=== PATIENT | male | born 1980 | race Caucasian/White ===

== ENCOUNTER 2017-02-09 09:10 | Emergency (ER) | payer OTHER ==
--- NOTE | 2017-02-09 10:21 | DIAGNOSTIC IMAGING REPORT ---
PROCEDURE: XR CHEST 2 VIEW INDICATION: COUGH X 2 MONTHS TECHNIQUE: Two views. COMPARISON: 01/14/2016 FINDINGS: The cardiomediastinal contour is stable, within normal limits. The central vasculature is not congested. The lungs are clear without focal consolidation, pleural effusion or pneumothorax. The visualized osseous structures are intact. IMPRESSION: 1. No evidence of acute cardiopulmonary disease. 2. Stable exam compared to prior study.
--- NOTE | 2017-02-09 10:41 | ED ORDER SUMMARY ---
..... Patient: VENTURA SINGH OrderSheet [facility] VisitID: [id number] [place] [address] 36y, M Registration Date/Time: 02/09/2017 ORDER SHEET Weight: 122.4 kg (stated) Allergies: No Known Drug Allergy GENERAL ORDERS: Chest 2V Urgent (09:30 02/09/2017 Sandoval Kaminski) (Ack 9:35 TBergley) (9:52 MWinterer R.N.) Culture, Strep Screen Urgent (:02/09/2017 Sandoval Kaminski) (Ack 9:35 TBergley) (9:52 MWinterer R.N.) MEDICATION ORDERS: Prednisone PO 60 mg (NOW) (09:02/09/2017 Sandoval Kaminski) (Ack 9:40 MWinterer R.N.) (9:52 MWinterer R.N.) Toradol IM 60 mg (NOW) (09:02/09/2017 Sandoval Kaminski) (Ack 9:40 MWinterer R.N.) (9:52 MWinterer R.N.) Azithromycin PO 500 mg (NOW) (10:39 02/09/2017 Sandoval Kaminski) (Ack 10:43 SReodessa R.N.) (10:45 Janiya R.N.) IV FLUIDS: ORDER SHEET NOTES: [Electronically signed by Mikayla Stinson R.N. (10:50 02/09/2017)] [Electronically signed by Giuseppe Beard Dr. (11:42 02/11/2017)] [Electronically locked/signed by Mikayla Stinson R.N. (10:50 02/09/2017)]
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
--- NOTE | 2017-02-09 10:41 | ED ORDER SUMMARY ---
..... Patient: VENTURA SINGH OrderSheet [facility] VisitID: [id number] [place] [address] 36y, M Registration Date/Time: 02/09/2017 ORDER SHEET Weight: 122.4 kg (stated) Allergies: No Known Drug Allergy GENERAL ORDERS: Chest 2V Urgent (09:30 02/09/2017 Sandoval Kaminski) (Ack 9:35 TBergley) (9:52 MWinterer R.N.) Culture, Strep Screen Urgent (:02/09/2017 Sandoval Kaminski) (Ack 9:35 TBergley) (9:52 MWinterer R.N.) MEDICATION ORDERS: Prednisone PO 60 mg (NOW) (09:02/09/2017 Sandoval Kaminski) (Ack 9:40 MWinterer R.N.) (9:52 MWinterer R.N.) Toradol IM 60 mg (NOW) (09:02/09/2017 Sandoval Kmainski) (Ack 9:40 MWinterer R.N.) (9:52 MWinterer R.N.) Azithromycin PO 500 mg (NOW) (10:39 02/09/2017 Sandoval Kaminski) (Ack 10:43 SReodessa R.N.) (10:45 Janiya R.N.) IV FLUIDS: ORDER SHEET NOTES: [Electronically signed by Mikayla Stinson R.N. (10:50 02/09/2017)] [Electronically signed by Giuseppe Beard Dr. (11:42 02/11/2017)] [Electronically locked/signed by Mikayla Stinson R.N. (10:50 02/09/2017)]
--- NOTE | 2017-02-11 11:42 | ED MAR SUMMARY ---
..... Medication Administration Record [facility] [address] [place] [address] Patient: VENTURA SINGH Visit ID: [id number] 36y, M Weight: 122.4 kg Height/Length: 74 in BMI: 34.7 ALLERGIES: No Known Drug Allergy Given 09:52 02/09/2017 Huma Tamayo R.N. Medication Administered: PREDNISONE [PO], Dose: 60 mg PO. Medication Ordered: Prednisone PO 60 mg (NOW). Given 09:52 02/09/2017 Huma Tamayo R.N. Medication Administered: TORADOL [IM] (KETOROLAC TROMETHAMINE), Dose: 60 mg IM. Medication Ordered: Toradol IM 60 mg (NOW). Given 10:45 02/09/2017 Mikayla Stinson R.N. Medication Administered: AZITHROMYCIN [PO], Dose: 500 mg PO. Medication Ordered: Azithromycin PO 500 mg (NOW).
--- NOTE | 2017-02-11 11:42 | ED DISCHARGE INSTRUCTIONS ---
Patient: VENTURA SINGH General Instructions [facility] VisitID: [id number] [place] [address] 36y, M Registration Date/Time: 02/09/2017 02/09/2017 09:13 BP: 128/77. HR: 93. RR: 20. O2 saturation: 97%. Temp: 98.5 F. Pain level now: 9/10. Blood pressure normal. Oxygen saturation normal. Acute streptococcal pharyngitis INSTRUCTIONS Warnings: GENERAL WARNINGS: Return or contact your physician immediately if your condition worsens or changes unexpectedly, if not improving as expected, or if other problems arise. Specifically return if pain, vomiting, bleeding, breathing difficulty or fever. Your Current Medications: CONTINUE TAKING THE FOLLOWING MEDICATIONS: Simvastatin Oral. Prescription Medications: Prednisone 50 mg: take 1 orally every day for 5 days. Dispense five (5). No refills. Zithromax Z-Kenneth: Take according to package instructions. No refills. Substitution is permissible. Motrin 600 mg tablets: take 1 tablet orally every 6 hours for 5 days. Dispense twenty (20). No refill. Substitution is permissible. Follow-up: Return to the emergency department as needed. Follow up with your doctor in three days. Reason for referral: recheck today's concern. Summary of care provided to patient via paper. Screening today revealed the patient's blood pressure to be in the normal range. The patient should follow up with a primary care provider for blood pressure management. Understanding of the discharge instructions verbalized by patient. ADDITIONAL INFORMATION Pharyngitis: Strep [Confirmed] Your test for strep throat was positive. Strep throat is a contagious illness. It is spread by coughing, kissing or by touching others after touching your mouth or nose. Symptoms include throat pain which is worse with swallowing, aching all over, headache and fever. You will be treated with an antibiotic which should make you start to feel better within 1-2 days. Home Care: Rest at home and drink plenty of fluids to avoid dehydration. No school or work for the first two days on antibiotics. You will not be contagious after this time and if you are feeling better, you can return to school or work. Take your antibiotics for a full 10 days, even if you feel better after the first few days of treatment. This is very important to prevent heart or kidney disease that can result as a complication of untreated strep throat infection. Children: Use acetaminophen (Tylenol) for fever, fussiness or discomfort. In infants over six months of age, you may use ibuprofen (Children's Motrin) instead of Tylenol. [NOTE: If your child has chronic liver or kidney disease or ever had a stomach ulcer or GI bleeding, talk with your doctor before using these medicines.] (Aspirin should never be used in anyone under 18 years of age who is ill with a fever. It may cause severe liver damage.)Adults: You may use acetaminophen (Tylenol) or ibuprofen (Motrin, Advil) to control pain or fever, unless another medicine was prescribed for this. [NOTE: If you have chronic liver or kidney disease or ever had a stomach ulcer or GI bleeding, talk with your doctor before using these medicines.] Throat lozenges or sprays (Chloraseptic and others) will reduce pain. Gargling with warm salt water will also reduce throat pain. Dissolve 1/2 teaspoon of salt in 1 glass of warm water. This is especially useful just before meals. Follow Up with your doctor or as directed by our staff if you are not improving over the next week. Get Prompt Medical Attention if any of the following occur: Fever of 100.4F (38C) oral or higher, not better with fever medication New or worsening ear pain, sinus pain or headache Painful lumps in the back of your neck Unable to swallow liquids or open your mouth wide due to throat pain Trouble breathing or noisy breathing Muffled voice New rash Prednisone Oral tablet What is this medicine? PREDNISONE (PRED ni sone) is a corticosteroid. It is commonly used to treat inflammation of the skin, joints, lungs, and other organs. Common conditions treated include asthma, allergies, and arthritis. It is also used for other conditions, such as blood disorders and diseases of the adrenal glands. How should I use this medicine? Take this medicine by mouth with a glass of water. Follow the directions on the prescription label. Take this medicine with food. If you are taking this medicine once a day, take it in the morning. Do not take more medicine than you are told to take. Do not suddenly stop taking your medicine because you may develop a severe reaction. Your doctor will tell you how much medicine to take. If your doctor wants you to stop the medicine, the dose may be slowly lowered over time to avoid any side effects. Talk to your dependency director regarding the use of this medicine in children. Special care may be needed. What side effects may I notice from receiving this medicine? Side effects that you should report to your doctor or health direct care counselor as soon as possible: allergic reactions like skin rash, itching or hives, swelling of the face, lips, or tongue changes in emotions or moods changes in vision depressed mood eye pain fever or chills, cough, sore throat, pain or difficulty passing urine increased thirst swelling of ankles, feet Side effects that usually do not require medical attention (report to your doctor or health direct care counselor if they continue or are bothersome): confusion, excitement, restlessness headache nausea, vomiting skin problems, acne, thin and shiny skin trouble sleeping weight gain What may interact with this medicine? Do not take this medicine with any of the following medications: metyrapone mifepristone This medicine may also interact with the following medications: aminoglutethimide amphotericin B aspirin and aspirin-like medicines barbiturates certain medicines for diabetes, like glipizide or glyburide cholestyramine cholinesterase inhibitors cyclosporine digoxin diuretics ephedrine female hormones, like estrogens and control pills isoniazid ketoconazole NSAIDS, medicines for pain and inflammation, like ibuprofen or naproxen phenytoin rifampin toxoids vaccines warfarin What if I miss a dose? If you miss a dose, take it as soon as you can. If it is almost time for your next dose, talk to your doctor or health direct care counselor. You may need to miss a dose or take an extra dose. Do not take double or extra doses without advice. Where should I keep my medicine? Keep out of the reach of children. Store at room temperature between 15 and 30 degrees C (59 and 86 degrees F). Protect from light. Keep container tightly closed. Throw away any unused medicine after the expiration date. What should I tell my health care provider before I take this medicine? They need to know if you have any of these conditions: Funmilayo's syndrome diabetes glaucoma heart disease high blood pressure infection (especially a virus infection such as chickenpox, cold sores, or herpes) kidney disease liver disease mental illness myasthenia gravis osteoporosis seizures stomach or intestine problems thyroid disease an unusual or allergic reaction to lactose, prednisone, other medicines, foods, dyes, or preservatives or trying to get breast-feeding What should I watch for while using this medicine? Visit your doctor or health direct care counselor for regular checks on your progress. If you are taking this medicine over a prolonged period, carry an identification card with your name and address, the type and dose of your medicine, and your doctor's name and address. This medicine may increase your risk of getting an infection. Tell your doctor or health direct care counselor if you are around anyone with measles or chickenpox, or if you develop sores or blisters that do not heal properly. If you are going to have surgery, tell your doctor or health direct care counselor that you have taken this medicine within the last twelve months. Ask your doctor or health direct care counselor about your diet. You may need to lower the amount of salt you eat. This medicine may affect blood sugar levels. If you have diabetes, check with your doctor or health direct care counselor before you change your diet or the dose of your diabetic medicine. Azithromycin Oral tablet What is this medicine? AZITHROMYCIN (az ith tatiana MYE sin) is a macrolide antibiotic. It is used to treat or prevent certain kinds of bacterial infections. It will not work for colds, flu, or other viral infections. How should I use this medicine? Take this medicine by mouth with a full glass of water. Follow the directions on the prescription label. The tablets can be taken with food or on an empty stomach. If the medicine upsets your stomach, take it with food. Take your medicine at regular intervals. Do not take your medicine more often than directed. Take all of your medicine as directed even if you think your are better. Do not skip doses or stop your medicine early. Talk to your dependency director regarding the use of this medicine in children. Special care may be needed. What side effects may I notice from receiving this medicine? Side effects that you should report to your doctor or health direct care counselor as soon as possible: allergic reactions like skin rash, itching or hives, swelling of the face, lips, or tongue confusion, nightmares or hallucinations dark urine difficulty breathing hearing loss irregular heartbeat or chest pain pain or difficulty passing urine redness, blistering, peeling or loosening of the skin, including inside the mouth white patches or sores in the mouth yellowing of the eyes or skin Side effects that usually do not require medical attention (report to your doctor or health direct care counselor if they continue or are bothersome): diarrhea dizziness, drowsiness headache stomach upset or vomiting tooth discoloration vaginal irritation What may interact with this medicine? Do not take this medicine with any of the following medications: lincomycin This medicine may also interact with the following medications: amiodarone antacids cyclosporine digoxin magnesium nelfinavir phenytoin warfarin What if I miss a dose? If you miss a dose, take it as soon as you can. If it is almost time for your next dose, take only that dose. Do not take double or extra doses. Where should I keep my medicine? Keep out of the reach of children. Store at room temperature between 15 and 30 degrees C (59 and 86 degrees F). Throw away any unused medicine after the expiration date. What should I tell my health care provider before I take this medicine? They need to know if you have any of these conditions: kidney disease liver disease irregular heartbeat or heart disease an unusual or allergic reaction to azithromycin, erythromycin, other macrolide antibiotics, foods, dyes, or preservatives or trying to get breast-feeding What should I watch for while using this medicine? Tell your doctor or health direct care counselor if your symptoms do not improve. Do not treat diarrhea with over the counter products. Contact your doctor if you have diarrhea that lasts more than 2 days or if it is severe and watery. This medicine can make you more sensitive to the sun. Keep out of the sun. If you cannot avoid being in the sun, wear protective clothing and use sunscreen. Do not use sun lamps or tanning beds/booths. Ibuprofen Oral tablet What is this medicine? IBUPROFEN (eye BYOO proe fen) is a non-steroidal anti-inflammatory drug (NSAID). It is used for dental pain, fever, headaches or migraines, osteoarthritis, rheumatoid arthritis, or painful monthly periods. It can also relieve minor aches and pains caused by a cold, flu, or sore throat. How should I use this medicine? Take this medicine by mouth with a glass of water. Follow the directions on the prescription label. Take this medicine with food if your stomach gets upset. Try to not lie down for at least 10 minutes after you take the medicine. Take your medicine at regular intervals. Do not take your medicine more often than directed. A special MedGuide will be given to you by the pharmacist with each prescription and refill. Be sure to read this information carefully each time. Talk to your dependency director regarding the use of this medicine in children. Special care may be needed. What side effects may I notice from receiving this medicine? Side effects that you should report to your doctor or health direct care counselor as soon as possible: allergic reactions like skin rash, itching or hives, swelling of the face, lips, or tongue black or bloody stools, blood in the urine or in vomit breathing problems changes in vision chest pain general ill feeling or flu-like symptoms nausea or vomiting redness, blistering, peeling or loosening of the skin, including inside the mouth slurred speech or weakness on one side of the body stomach pain unexplained weight gain or swelling unusually weak or tired yellowing of eyes or skin Side effects that usually do not require medical attention (report to your doctor or health direct care counselor if they continue or are bothersome): constipation or diarrhea dizziness gas or heartburn stomach upset What may interact with this medicine? Do not take this medicine with any of the following medications: cidofovir ketorolac methotrexate pemetrexed This medicine may also interact with the following medications: alcohol aspirin diuretics lithium other drugs for inflammation like prednisone warfarin What if I miss a dose? If you miss a dose, take it as soon as you can. If it is almost time for your next dose, take only that dose. Do not take double or extra doses. Where should I keep my medicine? Keep out of the reach of children. Store at room temperature between 15 and 30 degrees C (59 and 86 degrees F). Keep container tightly closed. Throw away any unused medicine after the expiration date. What should I tell my health care provider before I take this medicine? They need to know if you have any of these conditions: asthma cigarette smoker drink more than 3 alcohol containing drinks a day heart disease or circulation problems such as heart failure or leg edema (fluid retention) high blood pressure kidney disease liver disease stomach bleeding or ulcers an unusual or allergic reaction to ibuprofen, aspirin, other NSAIDS, other medicines, foods, dyes, or preservatives or trying to get breast-feeding What should I watch for while using this medicine? Tell your doctor or healthcare professional if your symptoms do not start to get better or if they get worse. This medicine does not prevent heart attack or stroke. In fact, this medicine may increase the chance of a heart attack or stroke. The chance may increase with longer use of this medicine and in people who have heart disease. If you take aspirin to prevent heart attack or stroke, talk with your doctor or health direct care counselor. Do not take other medicines that contain aspirin, ibuprofen, or naproxen with this medicine. Side effects such as stomach upset, nausea, or ulcers may be more likely to occur. Many medicines available without a prescription should not be taken with this medicine. This medicine can cause ulcers and bleeding in the stomach and intestines at any time during treatment. Ulcers and bleeding can happen without warning symptoms and can cause . To reduce your risk, do not smoke cigarettes or drink alcohol while you are taking this medicine. You may get drowsy or dizzy. Do not drive, use machinery, or do anything that needs mental alertness until you know how this medicine affects you. Do not stand or sit up quickly, especially if you are an older patient. This reduces the risk of dizzy or fainting spells. This medicine can cause you to bleed more easily. Try to avoid damage to your teeth and gums when you brush or floss your teeth. You have been given the following additional information: Pharyngitis, Strep (Confirmed) Prednisone Oral tablet Azithromycin Oral tablet Ibuprofen Oral tablet (Electronically signed by Giuseppe Beard Dr. 02/11/2017 11:42)
--- NOTE | 2017-02-11 11:42 | ED DISCHARGE INSTRUCTIONS ---
Patient: VENTURA SINGH General Instructions [facility] VisitID: [id number] [place] [address] 36y, M Registration Date/Time: 02/09/2017 02/09/2017 09:13 BP: 128/77. HR: 93. RR: 20. O2 saturation: 97%. Temp: 98.5 F. Pain level now: 9/10. Blood pressure normal. Oxygen saturation normal. Acute streptococcal pharyngitis INSTRUCTIONS Warnings: GENERAL WARNINGS: Return or contact your physician immediately if your condition worsens or changes unexpectedly, if not improving as expected, or if other problems arise. Specifically return if pain, vomiting, bleeding, breathing difficulty or fever. Your Current Medications: CONTINUE TAKING THE FOLLOWING MEDICATIONS: Simvastatin Oral. Prescription Medications: Prednisone 50 mg: take 1 orally every day for 5 days. Dispense five (5). No refills. Zithromax Z-Kenneth: Take according to package instructions. No refills. Substitution is permissible. Motrin 600 mg tablets: take 1 tablet orally every 6 hours for 5 days. Dispense twenty (20). No refill. Substitution is permissible. Follow-up: Return to the emergency department as needed. Follow up with your doctor in three days. Reason for referral: recheck today's concern. Summary of care provided to patient via paper. Screening today revealed the patient's blood pressure to be in the normal range. The patient should follow up with a primary care provider for blood pressure management. Understanding of the discharge instructions verbalized by patient. ADDITIONAL INFORMATION Pharyngitis: Strep [Confirmed] Your test for strep throat was positive. Strep throat is a contagious illness. It is spread by coughing, kissing or by touching others after touching your mouth or nose. Symptoms include throat pain which is worse with swallowing, aching all over, headache and fever. You will be treated with an antibiotic which should make you start to feel better within 1-2 days. Home Care: Rest at home and drink plenty of fluids to avoid dehydration. No school or work for the first two days on antibiotics. You will not be contagious after this time and if you are feeling better, you can return to school or work. Take your antibiotics for a full 10 days, even if you feel better after the first few days of treatment. This is very important to prevent heart or kidney disease that can result as a complication of untreated strep throat infection. Children: Use acetaminophen (Tylenol) for fever, fussiness or discomfort. In infants over six months of age, you may use ibuprofen (Children's Motrin) instead of Tylenol. [NOTE: If your child has chronic liver or kidney disease or ever had a stomach ulcer or GI bleeding, talk with your doctor before using these medicines.] (Aspirin should never be used in anyone under 18 years of age who is ill with a fever. It may cause severe liver damage.)Adults: You may use acetaminophen (Tylenol) or ibuprofen (Motrin, Advil) to control pain or fever, unless another medicine was prescribed for this. [NOTE: If you have chronic liver or kidney disease or ever had a stomach ulcer or GI bleeding, talk with your doctor before using these medicines.] Throat lozenges or sprays (Chloraseptic and others) will reduce pain. Gargling with warm salt water will also reduce throat pain. Dissolve 1/2 teaspoon of salt in 1 glass of warm water. This is especially useful just before meals. Follow Up with your doctor or as directed by our staff if you are not improving over the next week. Get Prompt Medical Attention if any of the following occur: Fever of 100.4F (38C) oral or higher, not better with fever medication New or worsening ear pain, sinus pain or headache Painful lumps in the back of your neck Unable to swallow liquids or open your mouth wide due to throat pain Trouble breathing or noisy breathing Muffled voice New rash Prednisone Oral tablet What is this medicine? PREDNISONE (PRED ni sone) is a corticosteroid. It is commonly used to treat inflammation of the skin, joints, lungs, and other organs. Common conditions treated include asthma, allergies, and arthritis. It is also used for other conditions, such as blood disorders and diseases of the adrenal glands. How should I use this medicine? Take this medicine by mouth with a glass of water. Follow the directions on the prescription label. Take this medicine with food. If you are taking this medicine once a day, take it in the morning. Do not take more medicine than you are told to take. Do not suddenly stop taking your medicine because you may develop a severe reaction. Your doctor will tell you how much medicine to take. If your doctor wants you to stop the medicine, the dose may be slowly lowered over time to avoid any side effects. Talk to your water well driller regarding the use of this medicine in children. Special care may be needed. What side effects may I notice from receiving this medicine? Side effects that you should report to your doctor or health critical care nurse specialist as soon as possible: allergic reactions like skin rash, itching or hives, swelling of the face, lips, or tongue changes in emotions or moods changes in vision depressed mood eye pain fever or chills, cough, sore throat, pain or difficulty passing urine increased thirst swelling of ankles, feet Side effects that usually do not require medical attention (report to your doctor or health critical care nurse specialist if they continue or are bothersome): confusion, excitement, restlessness headache nausea, vomiting skin problems, acne, thin and shiny skin trouble sleeping weight gain What may interact with this medicine? Do not take this medicine with any of the following medications: metyrapone mifepristone This medicine may also interact with the following medications: aminoglutethimide amphotericin B aspirin and aspirin-like medicines barbiturates certain medicines for diabetes, like glipizide or glyburide cholestyramine cholinesterase inhibitors cyclosporine digoxin diuretics ephedrine female hormones, like estrogens and control pills isoniazid ketoconazole NSAIDS, medicines for pain and inflammation, like ibuprofen or naproxen phenytoin rifampin toxoids vaccines warfarin What if I miss a dose? If you miss a dose, take it as soon as you can. If it is almost time for your next dose, talk to your doctor or health critical care nurse specialist. You may need to miss a dose or take an extra dose. Do not take double or extra doses without advice. Where should I keep my medicine? Keep out of the reach of children. Store at room temperature between 15 and 30 degrees C (59 and 86 degrees F). Protect from light. Keep container tightly closed. Throw away any unused medicine after the expiration date. What should I tell my health care provider before I take this medicine? They need to know if you have any of these conditions: Funmilayo's syndrome diabetes glaucoma heart disease high blood pressure infection (especially a virus infection such as chickenpox, cold sores, or herpes) kidney disease liver disease mental illness myasthenia gravis osteoporosis seizures stomach or intestine problems thyroid disease an unusual or allergic reaction to lactose, prednisone, other medicines, foods, dyes, or preservatives or trying to get breast-feeding What should I watch for while using this medicine? Visit your doctor or health critical care nurse specialist for regular checks on your progress. If you are taking this medicine over a prolonged period, carry an identification card with your name and address, the type and dose of your medicine, and your doctor's name and address. This medicine may increase your risk of getting an infection. Tell your doctor or health critical care nurse specialist if you are around anyone with measles or chickenpox, or if you develop sores or blisters that do not heal properly. If you are going to have surgery, tell your doctor or health critical care nurse specialist that you have taken this medicine within the last twelve months. Ask your doctor or health critical care nurse specialist about your diet. You may need to lower the amount of salt you eat. This medicine may affect blood sugar levels. If you have diabetes, check with your doctor or health critical care nurse specialist before you change your diet or the dose of your diabetic medicine. Azithromycin Oral tablet What is this medicine? AZITHROMYCIN (az ith tatiana MYE sin) is a macrolide antibiotic. It is used to treat or prevent certain kinds of bacterial infections. It will not work for colds, flu, or other viral infections. How should I use this medicine? Take this medicine by mouth with a full glass of water. Follow the directions on the prescription label. The tablets can be taken with food or on an empty stomach. If the medicine upsets your stomach, take it with food. Take your medicine at regular intervals. Do not take your medicine more often than directed. Take all of your medicine as directed even if you think your are better. Do not skip doses or stop your medicine early. Talk to your water well driller regarding the use of this medicine in children. Special care may be needed. What side effects may I notice from receiving this medicine? Side effects that you should report to your doctor or health critical care nurse specialist as soon as possible: allergic reactions like skin rash, itching or hives, swelling of the face, lips, or tongue confusion, nightmares or hallucinations dark urine difficulty breathing hearing loss irregular heartbeat or chest pain pain or difficulty passing urine redness, blistering, peeling or loosening of the skin, including inside the mouth white patches or sores in the mouth yellowing of the eyes or skin Side effects that usually do not require medical attention (report to your doctor or health critical care nurse specialist if they continue or are bothersome): diarrhea dizziness, drowsiness headache stomach upset or vomiting tooth discoloration vaginal irritation What may interact with this medicine? Do not take this medicine with any of the following medications: lincomycin This medicine may also interact with the following medications: amiodarone antacids cyclosporine digoxin magnesium nelfinavir phenytoin warfarin What if I miss a dose? If you miss a dose, take it as soon as you can. If it is almost time for your next dose, take only that dose. Do not take double or extra doses. Where should I keep my medicine? Keep out of the reach of children. Store at room temperature between 15 and 30 degrees C (59 and 86 degrees F). Throw away any unused medicine after the expiration date. What should I tell my health care provider before I take this medicine? They need to know if you have any of these conditions: kidney disease liver disease irregular heartbeat or heart disease an unusual or allergic reaction to azithromycin, erythromycin, other macrolide antibiotics, foods, dyes, or preservatives or trying to get breast-feeding What should I watch for while using this medicine? Tell your doctor or health critical care nurse specialist if your symptoms do not improve. Do not treat diarrhea with over the counter products. Contact your doctor if you have diarrhea that lasts more than 2 days or if it is severe and watery. This medicine can make you more sensitive to the sun. Keep out of the sun. If you cannot avoid being in the sun, wear protective clothing and use sunscreen. Do not use sun lamps or tanning beds/booths. Ibuprofen Oral tablet What is this medicine? IBUPROFEN (eye BYOO proe fen) is a non-steroidal anti-inflammatory drug (NSAID). It is used for dental pain, fever, headaches or migraines, osteoarthritis, rheumatoid arthritis, or painful monthly periods. It can also relieve minor aches and pains caused by a cold, flu, or sore throat. How should I use this medicine? Take this medicine by mouth with a glass of water. Follow the directions on the prescription label. Take this medicine with food if your stomach gets upset. Try to not lie down for at least 10 minutes after you take the medicine. Take your medicine at regular intervals. Do not take your medicine more often than directed. A special MedGuide will be given to you by the pharmacist with each prescription and refill. Be sure to read this information carefully each time. Talk to your water well driller regarding the use of this medicine in children. Special care may be needed. What side effects may I notice from receiving this medicine? Side effects that you should report to your doctor or health critical care nurse specialist as soon as possible: allergic reactions like skin rash, itching or hives, swelling of the face, lips, or tongue black or bloody stools, blood in the urine or in vomit breathing problems changes in vision chest pain general ill feeling or flu-like symptoms nausea or vomiting redness, blistering, peeling or loosening of the skin, including inside the mouth slurred speech or weakness on one side of the body stomach pain unexplained weight gain or swelling unusually weak or tired yellowing of eyes or skin Side effects that usually do not require medical attention (report to your doctor or health critical care nurse specialist if they continue or are bothersome): constipation or diarrhea dizziness gas or heartburn stomach upset What may interact with this medicine? Do not take this medicine with any of the following medications: cidofovir ketorolac methotrexate pemetrexed This medicine may also interact with the following medications: alcohol aspirin diuretics lithium other drugs for inflammation like prednisone warfarin What if I miss a dose? If you miss a dose, take it as soon as you can. If it is almost time for your next dose, take only that dose. Do not take double or extra doses. Where should I keep my medicine? Keep out of the reach of children. Store at room temperature between 15 and 30 degrees C (59 and 86 degrees F). Keep container tightly closed. Throw away any unused medicine after the expiration date. What should I tell my health care provider before I take this medicine? They need to know if you have any of these conditions: asthma cigarette smoker drink more than 3 alcohol containing drinks a day heart disease or circulation problems such as heart failure or leg edema (fluid retention) high blood pressure kidney disease liver disease stomach bleeding or ulcers an unusual or allergic reaction to ibuprofen, aspirin, other NSAIDS, other medicines, foods, dyes, or preservatives or trying to get breast-feeding What should I watch for while using this medicine? Tell your doctor or healthcare professional if your symptoms do not start to get better or if they get worse. This medicine does not prevent heart attack or stroke. In fact, this medicine may increase the chance of a heart attack or stroke. The chance may increase with longer use of this medicine and in people who have heart disease. If you take aspirin to prevent heart attack or stroke, talk with your doctor or health critical care nurse specialist. Do not take other medicines that contain aspirin, ibuprofen, or naproxen with this medicine. Side effects such as stomach upset, nausea, or ulcers may be more likely to occur. Many medicines available without a prescription should not be taken with this medicine. This medicine can cause ulcers and bleeding in the stomach and intestines at any time during treatment. Ulcers and bleeding can happen without warning symptoms and can cause . To reduce your risk, do not smoke cigarettes or drink alcohol while you are taking this medicine. You may get drowsy or dizzy. Do not drive, use machinery, or do anything that needs mental alertness until you know how this medicine affects you. Do not stand or sit up quickly, especially if you are an older patient. This reduces the risk of dizzy or fainting spells. This medicine can cause you to bleed more easily. Try to avoid damage to your teeth and gums when you brush or floss your teeth. You have been given the following additional information: Pharyngitis, Strep (Confirmed) Prednisone Oral tablet Azithromycin Oral tablet Ibuprofen Oral tablet (Electronically signed by Giuseppe Beard Dr. 02/11/2017 11:42)
--- NOTE | 2017-02-11 11:42 | ED MAR SUMMARY ---
..... Medication Administration Record [facility] [address] [place] [address] Patient: VENTURA SINGH Visit ID: [id number] 36y, M Weight: 122.4 kg Height/Length: 74 in BMI: 34.7 ALLERGIES: No Known Drug Allergy Given 09:52 02/09/2017 Huma Tamayo R.N. Medication Administered: PREDNISONE [PO], Dose: 60 mg PO. Medication Ordered: Prednisone PO 60 mg (NOW). Given 09:52 02/09/2017 Huma Tamayo R.N. Medication Administered: TORADOL [IM] (KETOROLAC TROMETHAMINE), Dose: 60 mg IM. Medication Ordered: Toradol IM 60 mg (NOW). Given 10:45 02/09/2017 Mikayla Stinson R.N. Medication Administered: AZITHROMYCIN [PO], Dose: 500 mg PO. Medication Ordered: Azithromycin PO 500 mg (NOW).
--- NOTE | 2017-02-11 11:42 | ED MED RECONCILIATION SUMMARY ---
Patient: VENTURA SINGH Medication Reconciliation Report [facility] VisitID: [id number] [address] [place] [address] 36y, M Registration Date/Time: 02/09/2017 Weight: 122.4 kg Height/Length: 74 in. BMI: 34.7 ALLERGIES: No Known Drug Allergy The patient's Home Medications are listed below: CONTINUE TAKING THE FOLLOWING MEDICATIONS: Simvastatin Oral The source(s) of the original Home Medication information: patient The following Medications were given to the patient in the Emergency Department: Prednisone [PO] PO 60 mg, administered: 02/09/2017 9:52:00 AM Toradol [IM] IM 60 mg, administered: 02/09/2017 9:52:00 AM Azithromycin [PO] PO 500 mg, administered: 02/09/2017 10:45:00 AM The following Medications were prescribed to the patient: Prednisone 50 mg: take 1 orally every day for 5 days. Dispense five (5). No refills. -- Giuseppe Beard Dr. Zithromax Z-Kenneth: Take according to package instructions. No refills. Substitution is permissible. -- Giuseppe Beard Dr. Motrin 600 mg tablets: take 1 tablet orally every 6 hours for 5 days. Dispense twenty (20). No refill. Substitution is permissible. -- Giuseppe Beard Dr.
--- NOTE | 2017-02-11 11:42 | ED MED RECONCILIATION SUMMARY ---
Patient: VENTURA SINGH Medication Reconciliation Report [facility] VisitID: [id number] [address] [place] [address] 36y, M Registration Date/Time: 02/09/2017 Weight: 122.4 kg Height/Length: 74 in. BMI: 34.7 ALLERGIES: No Known Drug Allergy The patient's Home Medications are listed below: CONTINUE TAKING THE FOLLOWING MEDICATIONS: Simvastatin Oral The source(s) of the original Home Medication information: patient The following Medications were given to the patient in the Emergency Department: Prednisone [PO] PO 60 mg, administered: 02/09/2017 9:52:00 AM Toradol [IM] IM 60 mg, administered: 02/09/2017 9:52:00 AM Azithromycin [PO] PO 500 mg, administered: 02/09/2017 10:45:00 AM The following Medications were prescribed to the patient: Prednisone 50 mg: take 1 orally every day for 5 days. Dispense five (5). No refills. -- Giuseppe Beard Dr. Zithromax Z-Kenneth: Take according to package instructions. No refills. Substitution is permissible. -- Giuseppe Beard Dr. Motrin 600 mg tablets: take 1 tablet orally every 6 hours for 5 days. Dispense twenty (20). No refill. Substitution is permissible. -- Giuseppe Beard Dr.
== END 2017-02-09 10:47 | disposition home or self-care (01) ==
LOC: ED SRH 09:10
DX: J02.0 Streptococcal pharyngitis (principal); M06.9 Rheumatoid arthritis, unspecified
CPT/HCPCS: 90154

== ENCOUNTER 2017-02-12 08:51 | Outpatient (CLI) | payer OTHER ==
--- NOTE | 2017-02-12 12:33 | DIAGNOSTIC IMAGING REPORT ---
PROCEDURE: US KIDNEY/RENAL COMPLETE INDICATION: Microscopic hematuria TECHNIQUE: Kothari scale and color Doppler sonographic imaging of the kidneys and urinary bladder was obtained. Intrarenal resistive indices were calculated when appropriate. COMPARISON: .06/21/[address] 06/23/2015 FINDINGS: The right kidney measures 12.2 x 5.2 x 4.9 cm. Normal cortical thickness and echogenicity. No hydronephrosis, cyst, solid mass, or shadowing calculus. Normal color Doppler blood flow throughout the kidney. Resistive indices in the intrarenal parenchymal arteries range from 0.53-0.60. The left kidney measures 13.0 x 5.5 x 5.8 cm. Normal cortical thickness and echogenicity. There is an exophytic hypoechoic, thin-walled cystic structure arising from the upper pole lateral left kidney measuring 1.5 cm. No suspicious solid mass. No hydronephrosis or shadowing calculus. Normal color Doppler blood flow throughout the kidney. Resistive indices in the intrarenal parenchymal arteries range from 0.51-0.57. Incidental note made of mild hepatic hyperechogenicity. The filled urinary bladder has a volume of 570 ml and a post void residual of 40 ml The urinary bladder wall is uniform in thickness without suspicious thickening or irregularity. No bladder debris, calcification or mass. Bilateral ureteral jets were visible indicating ureteral patency. The visible portion of the prostate gland measures 3.4 x 2.9 x 1.3 cm. IMPRESSION: 1. No evidence of renal calculi or obstructive uropathy. 2. Stable left lateral upper pole proteinaceous cyst. 3. Small postvoid residual in the urinary bladder. No significant prostate enlargement.
== END 2017-02-12 23:00 ==
LOC: US SRH 08:51
DX: N28.1 Cyst of kidney, acquired (principal)

== ENCOUNTER 2017-03-10 15:51 | Outpatient (CLI) | payer OTHER ==
--- NOTE | 2017-03-10 17:47 | DIAGNOSTIC IMAGING REPORT ---
PROCEDURE: CT IVP CLINICAL INDICATION: HEMATURIA TECHNIQUE: Initially, noncontrast axial images were obtained of the entire abdomen and pelvis. 125 ml of Isovue 300 was injected intravenously, and axial images were obtained of the kidneys in the nephrographic phase, and subsequently through the entire abdomen and pelvis in the excretory phase. Axial CT images through the pelvis in the delayed phase were obtained. Sagittal and coronal reformations were created. COMPARISON: 06/23/2015 FINDINGS: NONCONTRAST ABDOMEN: No intrarenal calcifications. No unusual calcifications in the liver or spleen. No significant calcific atherosclerosis of the abdominal aorta. 16 mm exophytic cystic structure arising from the upper pole of the left kidney with precontrast Hounsfield units of 19. CONTRAST ABDOMEN: The kidneys uptake and excrete IV contrast uniformly and symmetrically. Postcontrast Hounsfield units of the upper pole cyst of between 20 and 24. No solid renal mass. The excretory images demonstrate no filling defects in the intrarenal or ureteral collecting system. The lung bases, liver, gallbladder, adrenal glands, spleen, pancreas, stomach, upper bowel loops, and mesentery appear normal. NONCONTRAST PELVIS: No suspicious distal ureteral calcifications or hydroureter. No bladder calcifications. CONTRAST PELVIS: The urinary bladder demonstrates normal wall thickness without suspicious irregularity. No bladder mass or unusual enhancement. The reproductive organs are normal for age. Pelvic vessels are normal. No suspicious mass or free pelvic fluid. Intact osseous structures. IMPRESSION: 1. Stable, non-enhancing, exophytic cystic structure upper pole left kidney consistent with proteinaceous/hemorrhagic cyst. 2. Otherwise normal CT IVP. All CT scans at this facility use dose modulation, iterative reconstruction, and/or weight-based dosing when appropriate to reduce radiation dose to as low as reasonably achievable.
== END 2017-03-10 23:00 ==
LOC: CT SRH 15:51
DX: N28.1 Cyst of kidney, acquired (principal)